=== PATIENT | female | born 1975 | race Caucasian/White ===

== ENCOUNTER 2018-06-28 12:40 | Outpatient (CLI) | payer BC | END 2018-06-28 12:41 | disposition home or self-care (01) | LOC: BICMAMMO 12:40 | PROVIDERS: ATTEND Student in an Organized Health Care Education/Training Program | DX: N63.20 Unspecified lump in the left breast, unspecified quadrant (principal) | CPT/HCPCS: 77066; G0279 ==

== ENCOUNTER 2019-05-26 11:35 | Outpatient (CLI) | payer BC ==
--- NOTE | 2019-05-26 16:25 | RAD ---
LEFT HIP 2 VIEWS: HISTORY: Left hip pain. FINDINGS: No evidence of fracture. No significant degenerative change. Femoral head contour is normal. No os seous abnormality is seen. IMPRESSION: Unremarkable left hip. POS: [facility]
== END 2019-05-26 11:36 | disposition home or self-care (01) ==
LOC: BICRAD 11:35
PROVIDERS: ATTEND Internal Medicine Rheumatology
DX: M25.552 Pain in left hip (principal)

== ENCOUNTER 2020-07-04 10:00 | Outpatient (CLI) | payer BC ==
--- NOTE | 2020-07-04 10:30 | RAD ---
XR Chest Pa Lat STANDARD HISTORY: Bronchitis. Covid 19 positive on 06/17/2020 COMPARISON: None FINDINGS: The heart size is normal. The lungs are well expanded without focal areas of consolidation, pneumothorax or pleural effusions. IMPRESSION: No radiographic evidence of acute cardiopulmonary process.
== END 2020-07-04 10:01 | disposition home or self-care (01) ==
LOC: BICRAD 10:00
PROVIDERS: ATTEND Internal Medicine
DX: J40 Bronchitis, not specified as acute or chronic (principal)
CPT/HCPCS: 71046

== ENCOUNTER 2021-07-04 14:00 | Outpatient (CLI) | payer BC | END 2021-07-04 14:01 | disposition home or self-care (01) | LOC: BICMAMMO 14:00 | PROVIDERS: ATTEND Student in an Organized Health Care Education/Training Program | DX: N63.10 Unspecified lump in the right breast, unspecified quadrant (principal) | CPT/HCPCS: 77066; G0279 ==

== ENCOUNTER 2021-07-25 09:05 | Outpatient (CLI) | payer BC | END 2021-07-25 09:06 | disposition home or self-care (01) | LOC: TBSIIMAG 09:05 | PROVIDERS: ATTEND Neurological Surgery | DX: M25.552 Pain in left hip (principal); M54.50 Low back pain, unspecified; M16.12 Unilateral primary osteoarthritis, left hip; M25.852 Other specified joint disorders, left hip; M51.36 Other intervertebral disc degeneration, lumbar region | CPT/HCPCS: 72100 ==